=== PATIENT | female | born 2000 | race Caucasian/White ===

== ENCOUNTER 2020-10-06 15:48 | Emergency (ER) | payer BC, SELFPAY ==
[2020-10-06 16:02] VITALS: BP 98/59; PULSE 69; RESP 16; TEMP 37.1; O2SAT 100
--- NOTE | 2020-10-06 16:50 | ED.GENADULT ---
HPI - General Adult General Chief complaint: Skin/Abscess/Foreign Body Stated complaint: rash Source: patient Mode of arrival: ambulatory Limitations: no limitations History of Present Illness HPI narrative: Patient is a 19-year-old female presents to the urgent care via POV for evaluation of a generalized rash that has been present for approximately 5 days. She reports rash to be blisterlike, erythematous and pruritic. She believes the rash may be caused by poison sumac. Antihistamines and, and lotion provide minimal relief. Scratching alleviates itch. Does not identify aggravating factors. Of note, she also reports using Dial soap to keep open areas of skin from becoming infected Related Data Allergies Allergy/AdvReac Type Severity Reaction Status Date / Time No Known Allergies Allergy Verified 10/06/20 16:26 Review of Systems Review of Systems: Denies recent/new changes in soaps, perfumes, lotions, detergents, and shampoos. Denies working with chemicals. Denies new or changes in medications/foods. Pertinent negatives fever, chills, sweats, change in appetite, malaise, poor p.o. intake, recent weight loss, change in appetite, myalgias, lymphadenopathy, LOC, dizziness, burning sensation, petechiae, swelling, streaking, warmth, lesions, easy bruising, lip/tongue/throat swelling, facial swelling, abdominal pain, nausea, vomiting, numbness, tingling, loss of sensation, cough, wheezing, chest pain, and heart palpitations/murmurs. PMFSH Comments I have reviewed and agree with the patient's past medical, surgical, social, and family hx as documented by the RN. There is no relevant family history pertinent to the presenting complaint. Exam Narrative: GENERAL: Well-appearing, well-nourished, and in no acute distress. HEAD: Normocephalic, atraumatic. No facial swelling appreciated. EYES: PERRLA and EOMI. No evidence of erythema, swelling, or drainage. ENT: Nares clear, no rhinorrhea or epistaxis.Mucous membranes moist and pink. Uvula is midline without erythema and swelling. No evidence of obstruction, petechial rash, cobblestoning, lesions, ulcers, erythema, swelling, exudates, peritonsillar abscess, tenting, or drooling. Breath odor and voice normal. NECK: Supple. No Lymphadenopathy or nuchal rigidity appreciated. CHEST: Bilateral lung clark are clear to auscultation. No respiratory distress. No evidence of cough or pleuritic cp upon examination. HEART: Regular rate and rhythm. No murmur, gallop, or rub heard. EXTREMITIES: Normal range of motion. No edema. SKIN: Generalized rash consistent with poison cristian appreciated. No facial involvement. Warm, dry. No evidence of cellulitis, abscess, streaking, induration, abrasions/lacerations, petechiae, hematoma, contusion, drainage, or bleeding. NEURO: No focal deficits. Alert and oriented x3. SPECIAL OBSERVATIONS: Smiling. Laughing. No evidence of discomfort. C/O of of proportion to exam. Eating XXX. Running around. Tolerates food/fluids. Course Vital Signs Vital signs: Vital Signs Temperature 98.8 F 10/06/20 16:02 Pulse Rate 69 10/06/20 16:02 Respiratory Rate 16 10/06/20 16:02 Blood Pressure 98/59 L 10/06/20 16:02 Pulse Oximetry 100 10/06/20 16:02 Temperature 98.8 F 10/06/20 16:02 Pulse Rate 69 10/06/20 16:02 Respiratory Rate 16 10/06/20 16:02 Blood Pressure 98/59 L 10/06/20 16:02 Pulse Oximetry 100 10/06/20 16:02 Reviewed Medical Decision Making Differential Diagnosis Differential Diagnosis: Contact/allergic dermatitis, atopic dermatitis, psoriasis, cellulitis, tinea infection, parasite infection, shingles Vital Signs Vital Signs: Vital Signs Temperature 98.8 F 10/06/20 16:02 Pulse Rate 69 10/06/20 16:02 Respiratory Rate 16 10/06/20 16:02 Blood Pressure 98/59 L 10/06/20 16:02 Pulse Oximetry 100 10/06/20 16:02 Temperature 98.8 F 10/06/20 16:02 Pulse Rate 69 10/06/20 16:02 Respiratory Rate 16 09/09
== END 2020-10-06 17:00 | disposition home or self-care (01) ==
PROVIDERS: Emergency Provider Nurse Practitioner Family
DX: L23.7 Allergic contact dermatitis due to plants, except food (principal)
CPT/HCPCS: 99213; G0463